=== PATIENT | female | born 1965 | race Caucasian/White ===

== ENCOUNTER 2017-07-12 20:05 | Inpatient (IN) | payer OTHER ==
[~2017-07-12] VITALS: Ht 167.6 cm; Wt 73.1 kg
[~2017-07-12 20:05] MED LIST: BUPROBAN150 MG PO; CELEBREX200 MG PO; CIPRO500 MG PO; EYE OMEGA ADVA1 EACH PO; FLAGYL500 MG PO; FLEXERIL10 MG PO; GLUCOPHAGE500 MG PO; GLUCOTROL XL10 MG PO; HYDROCODON-ACE1 EAC7 PO; JANUVIA25 M1 PO; MULTIPLE VITAM1 EACH PO; NEURONTIN100 MG PO; NORCO 5/3251 TABLET PO; PRILOSEC20 MG PO; SYNTHROID75 MCG PO; ULTRAM50 MG PO; XANAX0.5 MG PO; ZESTRIL10 MG PO; ZOCOR20 MG PO; ZOFRAN ODT8 MG PO; ZOLOFT100 MG PO
[2017-07-12] MEDS ORDERED: WELLBUTRIN XL300 MG PO (20:47)
[2017-07-12 20:52] LABS: HEMATOCRIT 43.9 % (36.0-46.0); HEMOGLOBIN 15.3 G/DL (11.9-15.5); MCHC 34.9 G/DL (30.0-36.0); MCV 88.9 FL (83-99); PLATELET COUNT 343 K/uL (156-360); RBC DIS.WIDTH-CV 12.7 % (11.8-14.6); RBC DIS.WIDTH-SD 41.7 % (39-53); RED BLOOD COUNT 4.94 M/uL (3.80-5.20); WHITE BLOOD COUNT 21.3 K/uL (4.1-10.2)
[2017-07-12 21:15] LABS: ALBUMIN 4.2 g/dL (3.2-4.8)
[2017-07-12 21:16] LABS: CHLORIDE 105 mEq/L (99-109); SODIUM 138 mEq/L (136-147)
[2017-07-12 21:18] LABS: GLUCOSE 174 mg/dL (70-99); TOTAL PROTEIN 7.3 g/dL (6.4-8.3)
[2017-07-12 21:20] LABS: TOTAL BILIRUBIN 1.2 mg/dL (0.0-1.0)
[2017-07-12 21:21] LABS: ALKALINE PHOSPHATASE 57 IU/L (3-129)
[2017-07-12 21:22] LABS: CREATININE 0.8 mg/dL (0.6-1.3); GFR ESTIMATE (CALCULATED) > 59 mL/min/
[2017-07-12 21:22] LABS: APPEARANCE SL.HAZY ((CLEAR)); BILIRUBIN NEGATIVE; BLOOD NEGATIVE; COLOR YELLOW ((YELLOW)); GLUCOSE (STRIP) NEGATIVE; KETONES 5; LEUKOCYTES SMALL; NITRITE NEGATIVE; PROTEIN (STRIP) NEGATIVE
[2017-07-12 21:23] LABS: AST (GOT) 16 IU/L (2-34); UREA NITROGEN (BUN) 14 mg/dL (9-23)
[2017-07-12 21:24] LABS: ALT (GPT) 23 IU/L (3-49)
[2017-07-12 21:25] LABS: LIPASE 20 U/L (1.0-51.0)
[2017-07-12 21:34] LABS: QUANTITATIVE HCG < 4.0 MIU/ML
[2017-07-12 21:41] LABS: BACTERIA RARE /HPF; CALCIUM OXALATE CRYSTALS 4+ /HPF; EPITHELIAL CELLS 1+ /HPF; MUCUS TRACE /LPF; RED BLOOD CELLS 0-5 /HPF (0-5); UCUL ADDED? NO; WHITE BLOOD CELLS 0-5 /HPF (0-5)
[2017-07-13] VITALS (7 sets, daily range): BP systolic 96–153; BP diastolic 52–77
[2017-07-13 06:24] LABS: MCH 30.3 PG (29.0-34.0); MCHC 33.7 G/DL (30.0-36.0); PLATELET COUNT 279 K/uL (156-360); RBC DIS.WIDTH-CV 12.8 % (11.8-14.6); RBC DIS.WIDTH-SD 42.3 % (39-53); RED BLOOD COUNT 4.22 M/uL (3.80-5.20)
[2017-07-13 06:27] LABS: HEMOGLOBIN 12.8 G/DL (11.9-15.5)
[2017-07-13 06:37] LABS: CHLORIDE 104 MEQ/L (99-109); CREATININE 0.7 MG/DL (0.6-1.3); GFR ESTIMATE (CALCULATED) > 59 mL/min/; POTASSIUM 4.1 MEQ/L (3.7-5.4); SODIUM 138 MEQ/L (136-147); UREA NITROGEN (BUN) 9 mg/dL (9-23)
[2017-07-13 06:38] LABS: GLUCOSE 120 mg/dL (70-99)
[2017-07-14 04:26] VITALS: BP 150/66
[2017-07-14 06:04] LABS: BASOPHIL (%) 0.6 % (0-1); BASOPHIL COUNT 0.1 K/uL (0-0.1); EOSINOPHIL (%) 1.5 % (0-5); EOSINOPHIL COUNT 0.1 K/uL (0-0.3); HEMATOCRIT 39.4 % (36.0-46.0); HEMOGLOBIN 13.1 G/DL (11.9-15.5); IMMATURE GRANULOCYTE (%) 0.2 % (0.0-0.7); LYMPHOCYTE (%) 39.2 % (15-42); LYMPHOCYTE COUNT 3.5 K/uL (1.0-2.8); MCHC 33.2 G/DL (30.0-36.0); MCV 90.2 FL (83-99); MONOCYTE (%) 6.8 % (3-12); MONOCYTE COUNT 0.6 K/uL (0-0.8); NEUTROPHIL (%) 51.7 % (45-76); NEUTROPHIL COUNT 4.6 K/uL (1.8-6.4); PLATELET COUNT 273 K/uL (156-360); RBC DIS.WIDTH-CV 12.7 % (11.8-14.6); RBC DIS.WIDTH-SD 42.1 % (39-53); RED BLOOD COUNT 4.37 M/uL (3.80-5.20)
[2017-07-14 06:27] LABS: CHLORIDE 107 MEQ/L (99-109); CREATININE 0.6 MG/DL (0.6-1.3); GFR ESTIMATE (CALCULATED) > 59 mL/min/; GLUCOSE 121 mg/dL (70-99); SODIUM 138 MEQ/L (136-147); UREA NITROGEN (BUN) 5 mg/dL (9-23)
[2017-07-14 08:19] VITALS: BP 97/56
[2017-07-14 15:23] VITALS: BP 117/67
[2017-07-15 00:01] VITALS: BP 97/53
[2017-07-15 05:52] LABS: BASOPHIL (%) 0.4 % (0-1); EOSINOPHIL COUNT 0.1 K/uL (0-0.3); HEMOGLOBIN 13.8 G/DL (11.9-15.5); IMMATURE GRANULOCYTE (%) 0.1 % (0.0-0.7); LYMPHOCYTE (%) 42.3 % (15-42); LYMPHOCYTE COUNT 3.9 K/uL (1.0-2.8); MCH 30.7 PG (29.0-34.0); MCHC 33.7 G/DL (30.0-36.0); MCV 91.1 FL (83-99); MONOCYTE (%) 7.2 % (3-12); MONOCYTE COUNT 0.7 K/uL (0-0.8); NEUTROPHIL COUNT 4.5 K/uL (1.8-6.4); PLATELET COUNT 281 K/uL (156-360); RBC DIS.WIDTH-CV 12.7 % (11.8-14.6); RBC DIS.WIDTH-SD 42.4 % (39-53); WHITE BLOOD COUNT 9.2 K/uL (4.1-10.2)
[2017-07-15 06:13] LABS: CREATININE 0.6 MG/DL (0.6-1.3); GFR ESTIMATE (CALCULATED) > 59 mL/min/; UREA NITROGEN (BUN) 12 mg/dL (9-23)
[2017-07-15 06:23] LABS: CHLORIDE 107 MEQ/L (99-109); POTASSIUM 4.7 MEQ/L (3.7-5.4); SODIUM 143 MEQ/L (136-147)
[2017-07-15 06:28] LABS: CREATININE 0.7 MG/DL (0.6-1.3); GFR ESTIMATE (CALCULATED) > 59 mL/min/; GLUCOSE 106 mg/dL (70-99); UREA NITROGEN (BUN) 12 mg/dL (9-23)
[2017-07-15 07:36] VITALS: BP 91/53
[2017-07-15 08:29] VITALS: BP 100/62
== END 2017-07-15 13:23 | disposition home or self-care (01) | DRG 392 ==
LOC: EME 20:05 → RME 20:05 → EDOF 07-13 00:12 → ENRESERV 07-13 00:12 → 3EAST 07-13 00:12 → ENRESERV 07-13 00:51 → 3EAST 07-13 01:26
PROVIDERS: Physician Assistant; Surgery
DX: K59.00 Constipation, unspecified (principal); K56.609 Unspecified intestinal obstruction, unspecified as to partial versus complete obstruction; E11.9 Type 2 diabetes mellitus without complications; E66.9 Obesity, unspecified; I10 Essential (primary) hypertension; K21.9 Gastro-esophageal reflux disease without esophagitis; E78.5 Hyperlipidemia, unspecified; E03.9 Hypothyroidism, unspecified; F32.9 Major depressive disorder, single episode, unspecified; G43.909 Migraine, unspecified, not intractable, without status migrainosus; F17.200 Nicotine dependence, unspecified, uncomplicated; Z90.710 Acquired absence of both cervix and uterus; Z79.899 Other long term (current) drug therapy; Z79.84 Long term (current) use of oral hypoglycemic drugs; Z83.3 Family history of diabetes mellitus; Z98.84 Bariatric surgery status; Z82.49 Family history of ischemic heart disease and other diseases of the circulatory system
CPT/HCPCS: 36415; 74018; 74019; 74177; 80048; 80053; 81003; 82565; 82948; 83036; 83605; 83690; 84443; 84520; 84702; 85025; 85027; 87040; 99281; 99285; J2270; J2405; J7040; S0028